=== PATIENT | female | born 1960 | race Caucasian/White ===

== ENCOUNTER → 2019-01-12 | Outpatient (CLI) | payer OTHER ==
--- NOTE | 2019-01-13 08:20 | MM ---
Reason for exam: screening (asymptomatic). Last mammogram was performed 2 years and 4 months ago. History: Patient is postmenopausal. Physical Findings: A clinical breast exam by your physician is recommended on an annual basis and results should be correlated with mammographic findings. MG Screening Mammo w CAD Bilateral CC and MLO view(s) were taken. Prior study comparison: September 28, 2016, bilateral MG screening mammo w CAD. June 10, 2014, bilateral MG screening mammo w CAD. There are scattered fibroglandular densities. No suspicious abnormality. No significant changes when compared with prior studies. ASSESSMENT: Negative, BI-RAD 1 RECOMMENDATION: Routine screening mammogram of both breasts in 1 year.
== END | disposition home or self-care (01) ==
LOC: RADMAMWWP 10:54
PROVIDERS: ATTEND Internal Medicine
DX: Z12.31 Encounter for screening mammogram for malignant neoplasm of breast (principal)
CPT/HCPCS: 77067

== ENCOUNTER → 2022-07-24 | Outpatient (CLI) | payer OTHER ==
--- NOTE | 2022-07-24 09:05 | BD ---
EXAMINATION TYPE: Axial Bone Density DATE OF EXAM: 07/24/2022 COMPARISON: NONE CLINICAL HISTORY: 61 years year old Female. ICD-10 CODE: Z78.[address] Height: 63 Weight: 187 FRAX RISK QUESTIONS: Alcohol (3 or more units per day): NO Family History (Parent hip fracture): NO Glucocorticoids (More than 3mos): NO History of Fracture in Adulthood: NO Secondary Osteoporosis: 1. Type 1 Diabetes: NO 2. Hyperthyroidism: NO 3. Menopause before 45: NO 4. Malnutrition: NO 5. Chronic liver disease: NO Rheumatoid Arthritis: NO Current Tobacco Use: NO RISK FACTORS HISTORY OF: Hip Fracture (Right/Left): NO Spine Fracture: NO History of Wrist Fracture: NO Surgery to Spine/Hip(right/left)/Wrist (right/left): NO Family History of Osteoporosis: NO Active: YES Diet low in dairy products/other sources of calcium: NO Postmenopausal woman: YES Take estrogen and/or progesterone medications: NO Lost more than 2 inches in height since high school: NO Frequent falls: NO Poor Health: NO Hyperparathyroidism: NO Adrenal Insufficiency: NO MEDICATIONS: Prednisone or other steroids: NO Thyroid Medications: NO Osteoporosis Medications: NO Additional Medications: VIT D, EXAM MEASUREMENTS: Bone mineral densitometry was performed using the happyview System. Bone mineral density as measured about the Lumbar spine is: ----- L1-L4(G/cm2): 1.226 T Score Values are as follows: ----- L1: -0.2 ----- L2: -0.3 ----- L3: 0.8 ----- L4: 0.9 ----- L1-L4: 0.4 BASELINE STUDY Bone mineral density about the R hip (g/cm2): 0.775 Bone mineral density about the L hip (g/cm2): 0.853 T Score values are as follows: -----R Neck: -1.9 -----L Neck: -1.3 -----R Total: -1.0 -----L Total: 0.1 BASELINE STUDY FRAX%s: The graph provided illustrates a 8.9% chance for a major osteoporotic fx and a 1.0% chance fo r the hips probability for fx in 10 years time. IMPRESSION: Osteopenia (T Score between -2.5 and -1). There is slightly increased risk of fracture and the patient may be considered for treatment. Re-Screen 2-5 years. NOTE: T-SCORE=SD OF THE YOUNG ADULT MEAN.
--- NOTE | 2022-07-25 19:10 | MM ---
Reason for Exam: Screening (asymptomatic). Last mammogram was performed 3 year(s) and 7 month(s) ago. Patient History: Menarche at age 14. First Full-Term at age 25. Left ovary removed at age 53. Right ovary removed at age 53. Hysterectomy at age 53. Postmenopausal. Risk Values: Marla 5 year model risk: 1.3%. NCI Lifetime model risk: 6.6%. Prior Study Comparison: 06/10/2014 Bilateral Screening Mammogram, [facility]. 09/28/2016 Bilateral Screening Mammogram, [facility]. 01/12/2019 Bilateral Screening Mammogram, [facility]. Tissue Density: There are scattered fibroglandular densities. Findings: Analyzed By CAD. Focal rounded area of increased densities in the upper-outer aspect right breast anterior to mid position, present previously. This has obscured margins. No suspicious groups of microcalcifications, spiculated or lobular masses, architectural distortion or other secondary signs of malignancy are mammographically apparent. Overall Assessment: Benign, BI-RAD 2 Management: Screening Mammogram of both breasts in 1 year. A negative mammogram report should not preclude additional follow up of suspicious palpable abnormalities. Patient should continue monthly self breast exam. A clinical breast exam by your physician is recommended on an annual basis and results should be correlated with mammographic findings. Electronically signed and approved by: Davide Daniels D.O. Radiologis
== END | disposition home or self-care (01) ==
LOC: RADMAMWWP 07:26
PROVIDERS: ATTEND Family Medicine
DX: Z12.31 Encounter for screening mammogram for malignant neoplasm of breast (principal); M85.89 Other specified disorders of bone density and structure, multiple sites; Z78.0 Asymptomatic menopausal state
CPT/HCPCS: 77067; 77080

== ENCOUNTER 2022-08-09 07:21 | Day surgery (SDC) | payer OTHER ==
[2022-08-07 10:43] VITALS: BMI 32.8
[~2022-08-09 07:21] MED LIST: LACTATED RINGERS 1,000 ML IV SCH; LIDOCAINE 1% (10MG/ML) FOR IV START INTRADERMA PRN
[2022-08-09 07:54] VITALS: TEMP 98
[2022-08-09] MEDS ORDERED: PROPOFOL 10 MG/ML 20 ML VIAL IV ONE (08:13)
--- NOTE | 2022-08-09 08:14 | P.GSHP ---
History of Present Illness H&P Date: 08/09/22 Chief Complaint: History of colon polyps Is a 61-year-old female presents today for colonoscopy. Patient appears history of colon polyps. Past Medical History Additional Past Medical History / Comment(s): back pain History of Any Multi-Drug Resistant Organisms: None Reported Past Surgical History: Hysterectomy, Tonsillectomy, Tubal Ligation Additional Past Surgical History / Comment(s): [place] Teeth Past Anesthesia/Blood Transfusion Reactions: No Reported Reaction, Motion Sickness Smoking Status: Never smoker - Past Family History Mother Family Medical History: No Reported History Additional Family Medical History / Comment(s): maternal grandmother-cancer from mole,mother but unk causes Medications and Allergies Home Medications Medication Instructions Recorded Confirmed Type Calcium Carbonate/Vitamin D3 1 each PO DAILY 08/07/22 08/09/22 History [Calcium 600-D3 20 mcg (800 Unit)] Ergocalciferol [Vitamin D2 (1250 1,250 mcg PO WEEKLY 08/07/22 08/09/22 History Mcg = 27700 Iu)] L.acidoph,Paracasei, B.lactis 1 each PO DAILY 08/07/22 08/09/22 History [Probiotic] Multivitamin [Multivitamins Adult 1 tab PO DAILY 08/07/22 08/09/22 History Gummies] Allergies Allergy/AdvReac Type Severity Reaction Status Date / Time adhesive Allergy Rash/Hives Verified 08/09/22 07:49 Surgical - Exam Vital Signs Temp Pulse Resp BP Pulse Ox 98.0 F 89 18 149/83 97 08/09/22 07:52 08/09/22 07:52 08/09/22 07:52 08/09/22 07:52 08/09/22 07:52 - General well developed, well nourished - Eyes PERRL - ENT normal pinna - Neck no masses - Respiratory normal expansion - Cardiovascular Rhythm: regular - Abdomen Abdomen: soft, non tender Assessment and Plan Assessment: History of colon polyps. We'll perform colonoscopy
--- NOTE | 2022-08-09 08:32 | P.OP ---
Date of Procedure: 08/09/22 Preoperative Diagnosis: History of colon polyps Postoperative Diagnosis: Normal colon Procedure(s) Performed: Colonoscopy Anesthesia: MAC Surgeon: Bro Casarez Pathology: none sent Condition: stable Disposition: PACU Description of Procedure: The patient's placed on the endoscopy table in the lateral position. She received IV sedation. The digital rectal exam was performed which revealed no ebonized. The flexible colonoscope was then placed patient anus and passed throughout the entire colon. The ileocecal valve was visualized. The cecum, ascending and transverse colon appeared normal. The descending and sigmoid colon appeared normal. Scope back the rectum and this appeared normal. Scope withdrawn for patient.
[2022-08-09 08:54] VITALS: BP 121/71; PULSE 68; RESP 16
== END 2022-08-09 09:30 | disposition home or self-care (01) ==
LOC: ORWHC2ENDO 07:21
PROVIDERS: ATTEND Surgery
DX: Z86.010 Personal history of colon polyps (principal); Z91.048 Other nonmedicinal substance allergy status; F32.A Depression, unspecified; F41.9 Anxiety disorder, unspecified
CPT/HCPCS: 45378; J2704

== ENCOUNTER → 2023-08-20 | Outpatient (CLI) | payer OTHER ==
--- NOTE | 2023-08-21 08:44 | MM ---
Reason for Exam: Screening (asymptomatic). Last screening mammogram was performed 12 month(s) ago. Patient History: Menarche at age 14. First Full-Term at age 25. Left ovary removed at age 53. Right ovary removed at age 53. Hysterectomy at age 53. Postmenopausal. Risk Values: Marla 5 year model risk: 1.3%. NCI Lifetime model risk: 6.4%. Prior Study Comparison: 09/28/2016 Bilateral Screening Mammogram, [facility]. 01/12/2019 Bilateral Screening Mammogram, [facility]. 07/24/2022 Bilateral MG screening mammo w CAD, [facility]. Tissue Density: There are scattered fibroglandular densities. Findings: Analyzed By CAD. There is no suspicious group of microcalcifications or new suspicious mass. Left breast MLO view middle/posterior depth asymmetry 9.9 cm from the nipple measuring 6 mm. Slice 24 of 89 Right breast: There is no suspicious group of microcalcifications or new suspicious mass. Overall Assessment: Incomplete: need additional imaging evaluation, BI-RAD 0 Management: Diagnostic Mammogram of the left breast. [facility] will attempt to contact patient to return for supplemental views and ultrasound if indicated. Patient should continue monthly self-breast exams. A clinical breast exam by your physician is recommended on an annual basis. This exam should not preclude additional follow-up of suspicious palpable abnormalities. Note on Marla scores and lifetime risk: 1. A Marla score greater than 3% is considered moderate risk. If this is the case, consider specialist referral to assess eligibility for a risk reducing agent. 2. If overall lifetime risk for the development of breast cancer is 20% or higher, the patient may qualify for future screening with alternating mammogram and breast MRI. Electronically signed and approved by: Dimitri Linares DO
== END | disposition home or self-care (01) ==
LOC: RADMAMWWP 07:21
PROVIDERS: ATTEND Family Medicine
DX: Z12.31 Encounter for screening mammogram for malignant neoplasm of breast (principal); Z78.0 Asymptomatic menopausal state
CPT/HCPCS: 77063; 77067

== ENCOUNTER → 2023-08-29 | Outpatient (CLI) | payer OTHER ==
--- NOTE | 2023-08-29 14:13 | MM ---
Reason for Exam: Additional evaluation requested from abnormal screening. Last screening mammogram was performed less than 1 month ago. Patient History: Menarche at age 14. First Full-Term at age 25. Left ovary removed at age 53. Right ovary removed at age 53. Hysterectomy at age 53. Postmenopausal. Risk Values: Marla 5 year model risk: 1.4%. NCI Lifetime model risk: 6.2%. Prior Study Comparison: 06/10/2014 Bilateral Screening Mammogram, [facility]. 09/28/2016 Bilateral Screening Mammogram, [facility]. 01/12/2019 Bilateral Screening Mammogram, [facility]. 07/24/2022 Bilateral MG screening mammo w CAD, [facility]. 08/20/2023 Bilateral MG 3D screening mammo w/cad, [facility]. Tissue Density: Left: There are scattered fibroglandular densities. Findings: Analyzed By CAD. Left breast asymmetry compresses out on spot compression imaging. No new suspicious masses, calcifications or distortions. Overall Assessment: Benign, BI-RAD 2 Management: Screening Mammogram of the left breast in 1 year. Results were given to the patient verbally at the time of exam. Patient should continue monthly self-breast exams. A clinical breast exam by your physician is recommended on an annual basis. This exam should not preclude additional follow-up of suspicious palpable abnormalities. Note on Marla scores and lifetime risk: 1. A Marla score greater than 3% is considered moderate risk. If this is the case, consider specialist referral to assess eligibility for a risk reducing agent. 2. If overall lifetime risk for the development of breast cancer is 20% or higher, the patient may qualify for future screening with alternating mammogram and breast MRI. Electronically signed and approved by: Dimitri Linares DO
== END | disposition home or self-care (01) ==
LOC: RADMAMWWP 13:38
PROVIDERS: ATTEND Family Medicine
DX: R92.322 Mammographic fibroglandular density, left breast (principal); Z78.0 Asymptomatic menopausal state; Z90.721 Acquired absence of ovaries, unilateral
CPT/HCPCS: 77065; G0279; 77061

== ENCOUNTER → 2024-03-03 | Outpatient (CLI) | payer OTHER | END | disposition home or self-care (01) | LOC: LABWHC1 14:48 | PROVIDERS: ATTEND Surgery Plastic and Reconstructive Surgery | DX: I11.9 Hypertensive heart disease without heart failure (principal) | CPT/HCPCS: 36415; 93005 ==

== ENCOUNTER 2024-04-02 10:07 | Observation (INO) | payer OTHER ==
--- NOTE | 2024-04-02 09:45 | P.GSHP ---
History of Present Illness H&P Date: 04/02/24 CHIEF COMPLAINT: Gallstones HISTORY OF PRESENT ILLNESS: The patient is a 63-year-old female who presents with history of epigastric including right upper quadrant abdominal pain. She underwent diagnostic studies for her gallbladder. Separately her clinical picture was consistent with cholecystitis. Now she presents for surgical intervention. PAST MEDICAL HISTORY: Please see list PAST SURGICAL HISTORY: Please see list MEDICATIONS: Please see list ALLERGIES: Please see list SOCIAL HISTORY: Please see list FAMILY HISTORY: Please see list REVIEW OF ORGAN SYSTEMS: CONSTITUTIONAL: No reports of fevers or chills. HEENT: Denies any troubles with the vision or hearing. ENDOCRINE: No reports of hypothyroidism. No diabetes. RESPIRATORY: No recent pneumonias. CARDIOVASCULAR: Denies chest pain or palpitations GI: No blood in stools or constipation. MUSCULOSKELETAL: Has occasional joint pain including back pain. NEURO: No seizure disorders or headaches. No recent stroke. PSYCH: No depression or suicidal ideation. GENITOURINARY: No active blood in urine. No urinary hesitancy. HEMATOLOGIC: No personal or family history of DVTs or pulmonary emboli. SKIN: No skin cancer. PHYSICAL EXAM: VITAL SIGNS: Afebrile vital signs stable GENERAL: Well-developed pleasant in no acute distress. HEENT: No scleral icterus. Extraocular movements grossly intact. Moist buccal mucosa. NECK: Supple without lymphadenopathy. CHEST: Unlabored respirations. Equal bilateral excursions. CARDIOVASCULAR: Regular rate regular rhythm rhythm. Distal 2+ pulses. ABDOMEN: Soft, nondistended. Tender along the epigastrium and right upper quadrant. MUSCULOSKELETAL: No clubbing, cyanosis, or edema. NEURO: Cranial nerves II to XII within normal limits. No focal or lateralizing signs. PSYCH: Alert and oriented to person, place and time. SKIN: Well-perfused good skin turgor. LABS: Reviewed from 2014 and outdated. EKG February 2024 demonstrates normal EKG with sinus bradycardia. ASSESSMENT: 1. Epigastric and right upper quadrant abdominal pain 2. Chronic cholecystitis 3. Symptomatic gallstones. PLAN: 1. Will need a robotic cholecystectomy possible open. Benefits and risks were described. 2. Heparin for DVT prophylaxis 5000 units. 3. Antibiotic prophylaxis. 4. CBC and CMP on day of procedure 5. Non-narcotic pre and post op pain management reviewed. 6. Indocyanine green for biliary imaging. 7. Application of regional block for pain management Past Medical History Additional Past Medical History / Comment(s): current bloating, gas, possible gallbladder attack/abd pain December 2023 History of Any Multi-Drug Resistant Organisms: None Reported Past Surgical History: Hysterectomy, Tonsillectomy, Tubal Ligation Additional Past Surgical History / Comment(s): [place] Teeth Past Anesthesia/Blood Transfusion Reactions: Motion Sickness, Postoperative Nausea & Vomiting (PONV) Additional Past Anesthesia/Blood Transfusion Reaction / Comment(s): PONV after [place] teeth removal. Smoking Status: Never smoker - Past Family History Mother Family Medical History: No Reported History Additional Family Medical History / Comment(s): maternal grandmother-cancer from mole,mother but unk causes Medications and Allergies Home Medications Medication Instructions Recorded Confirmed Type Ergocalciferol [Vitamin D2 (1250 1,250 mcg PO WEEKLY 08/07/22 03/31/24 History Mcg = 70651 Iu)] Magnesium 1 dose PO HS 03/31/24 03/31/24 History Zinc 1 dose PO DAILY 03/31/24 03/31/24 History Allergies Allergy/AdvReac Type Severity Reaction Status Date / Time adhesive Allergy Rash/Hives Verified 03/31/24 08:35
--- NOTE | 2024-04-02 09:54 | P.PCN ---
Date of Procedure: 04/02/24 Description of Procedure: PREOPERATIVE DIAGNOSIS: GI bleed POSTOPERATIVE DIAGNOSIS: Acute gastric ulcer with bleeding Acute gastritis Gastroesophageal reflux disease Duodenitis OPERATION: Esophagogastroduodenoscopy with cold forcep biopsies esophagus, antrum, duodenum SURGEON: Renee Braga MD ANESTHESIA: MAC. INDICATIONS: The patient is a 63-year-old female who presents with gastrointestinal bleeding. Benefits and risks of the procedure were described. Informed consent was obtained. DESCRIPTION: The patient was brought into the endoscopy suite and laid in the left lateral decubitus position. An Olympus gastroscope was passed along the posterior oropharynx down to the distal esophagus where the squamocolumnar junction was encountered at 35 cm from the incisors. The stomach was entered and no bile reflux was found. Additional findings are listed below. The first through third portion of the duodenum was examined and unremarkable. Retroflexion of the scope confirmed Hill grade 2 lower esophageal valve. The squamocolumnar junction demonstrated LA grade B erosive esophagitis. The stomach was desufflated. The patient tolerated the procedure well. FINDINGS: Squamocolumnar junction 35 cm from the incisors. Diaphragmatic hiatus at 35 cm. Acute gastric 3 mm ulcer with bleeding along antrum, biopsies obtained Hill grade 2 lower esophageal valve. LA grade B erosive esophagitis. Biopsies obtained Active duodenitis with biopsies obtained RECOMMENDATIONS: 1. Omeprazole 40 mg daily
[~2024-04-02 10:07] MED LIST changes: +HYDROmorphone 0.5 MG/0.5 ML SYRINGE IVP PRN; -LACTATED RINGERS 1,000 ML IV SCH; -LIDOCAINE 1% (10MG/ML) FOR IV START INTRADERMA PRN; +ONDANSETRON 4 MG/2 ML VIAL IVP PRN
[2024-04-02] MEDS: LACTATED RINGERS 1,000 ML IV SCH (10:45)
[2024-04-02] MEDS: IV FLUID CONTINUATION 1,000 ML IV ONE ×2 (10:48→12:27)
[2024-04-02] MEDS: ACETAMINOPHEN TAB 500 MG TAB PO PRN (10:53)
[2024-04-02] MEDS: ONDANSETRON 4 MG/2 ML VIAL IVP ONE (10:53)
[2024-04-02] MEDS: HEPARIN SODIUM,PORCINE 5,000 UNIT/ML 1 ML VIAL SQ PRN (10:55)
[2024-04-02] MEDS: DEXAMETHASONE SOD PHOSPHATE 4 MG/ML 1 ML VIAL IV ONE (10:55)
[2024-04-02 11:00] LABS: Basophils % (A) 1 %; Eosinophils # (A) 0.1 k/uL (0-0.7); Eosinophils % (A) 2 %; HCT 50.3 % (34.0-46.0); HGB 16.1 gm/dL (11.4-16.0); Lymphocytes # (A) 1.8 k/uL (1.0-4.8); Lymphocytes % (A) 36 %; MCH 29.2 pg (25.0-35.0); MCV 91.3 fL (80.0-100.0); Mean Platelet Volume 8.7; Monocytes # (A) 0.4 k/uL (0-1.0); Monocytes % (A) 7 %; Neutrophils # (A) 2.5 k/uL (1.3-7.7); Neutrophils % (A) 52 %; Platelet Count 150 k/uL (150-450); RBC 5.51 m/uL (3.80-5.40); RDW 13.5 % (11.5-15.5); WBC 4.9 k/uL (3.8-10.6)
[2024-04-02] MEDS ORDERED: SUCCINYLCHOLINE CHLORIDE 200 MG/10 ML VIAL IV ONE (11:00)
[2024-04-02] MEDS ORDERED: HYDROmorphone (PF) 1 MG/ML ONE (11:00)
[2024-04-02] MEDS ORDERED: PROPOFOL 10 MG/ML 20 ML VIAL IV ONE (11:00)
[2024-04-02] MEDS ORDERED: ePHEDrine 50 MG/ML 1 ML VIAL ONE (11:00)
[2024-04-02] MEDS ORDERED: ONDANSETRON 4 MG/2 ML VIAL ONE (11:00)
[2024-04-02] MEDS ORDERED: MIDAZOLAM 2 MG/2 ML VIAL ONE (11:00)
[2024-04-02] MEDS ORDERED: NEOSTIGMINE 1 MG/ML 10 ML VIAL ONE (11:00)
[2024-04-02] MEDS ORDERED: KETOROLAC 15 MG/ML 1 ML VIAL ONE (11:00)
[2024-04-02] MEDS ORDERED: WATER FOR INJECTION, STERILE 10 ML VIAL IV ONE (11:00)
[2024-04-02] MEDS ORDERED: LIDOCAINE 1% INJ 10MG/ML (20 ML MDV) ONE (11:00)
[2024-04-02] MEDS ORDERED: GLYCOPYRROLATE 0.2 MG/ML 2 ML VIAL ONE (11:00)
[2024-04-02] MEDS ORDERED: fentaNYL (PF) 50 MCG/ML 2 ML AMP ONE (11:00)
[2024-04-02] MEDS ORDERED: ROCURONIUM 10 MG/ML (5 ML VIAL) IV ONE (11:00)
[2024-04-02] MEDS ORDERED: PHENYLEPHRINE 10 MG/ML VIAL ONE (11:00)
[2024-04-02 11:17] LABS: ALT 16 U/L (4-34); AST 22 U/L (14-36); African American GFR (CKD) >90 (>60 ml/min/1.73 sqM); Albumin 4.6 g/dL (3.5-5.0); Alkaline Phosphatase 90 U/L (38-126); Anion Gap 7 mmol/L; Blood Urea Nitrogen 20 mg/dL (7-17); Calcium 9.4 mg/dL (8.4-10.2); Carbon Dioxide 26 mmol/L (22-30); Chloride 109 mmol/L (98-107); Glucose 94 mg/dL (74-99); Non-African American GFR(CKD) 81 (>60 ml/min/1.73 sqM); Sodium 142 mmol/L (137-145); Total Bilirubin 0.8 mg/dL (0.2-1.3); Total Protein 7.5 g/dL (6.3-8.2)
[2024-04-02] MEDS: LIDOCAINE 1%-EPI 1:100,000 20 ML VIAL SQ ONE (11:37)
[2024-04-02] MEDS: droPERidol 5 MG/2 ML VIAL IVP ONE (13:41)
[2024-04-02] MEDS ORDERED: NALOXONE 0.4 MG/ML 1 ML VIAL IV PRN (13:50)
--- NOTE | 2024-04-02 13:57 | P.OP ---
Date of Procedure: 04/02/24 Description of Procedure: SURGEON: ABDON AGOSTO MD PREOPERATIVE DIAGNOSES: 1. Symptomatic gallstones 2. Upper abdominal pain 3. Obesity due to excess calories, BMI 33.7 POSTOPERATIVE DIAGNOSES: 1. Acute purulent hydropic cholecystitis with cystic duct obstruction due to gallstones 2. Upper abdominal pain 3. Obesity due to excess calories, BMI 33.7 4. Right upper quadrant pericholecystic peritoneal adhesions OPERATION: 1. Robotic-assisted da Janene Xi laparoscopic lysis of adhesions over 1 hour 2. Robotic-assisted da Janene Xi laparoscopic cholecystectomy, multiport with FIREFLY ESTIMATED BLOOD LOSS: 10 mL. SPECIMENS REMOVED: Gallbladder with a aerobic anaerobic cultures COMPLICATIONS: None. OPERATIVE FINDINGS: 1. Acute purulent gangrenous cholecystitis with hydrops and distended gallbladder 2. Indocyanine green confirms acute cholecystitis with lack of contrast in gallbladder 3. Common bile duct within normal limits, without dilation 4. Moderate to severe adhesions right upper quadrant requiring extensive lysis of adhesions INDICATIONS: The patient is a 63 year-old female who presents with epigastric right upper quadrant pain, symptomatic gallstones. Surgical intervention with cholecystectomy was described. Robotic assisted laparoscopic approach was described. Benefits and risks of the procedure including but not limited to bleeding, infection, injury to the biliary tree was reviewed. Informed consent was obtained. DESCRIPTION OF PROCEDURE: Patient was brought to the operating room, placed in supine position. After general induction, the abdomen had been prepped and draped in standard sterile fashion. The robotic da Janene XI system was primed. After a timeout protocol was performed, the patient had been prepped and draped in standard sterile fashion. The patient was injected with indocyanine green. A 5 mm 0 degrees laparoscopic trocar entry was performed along the left upper quadrant. The abdomen insufflated to 15 mmHg pressure which was tolerated well. Diagnostic laparoscopy demonstrated no injury to bowel viscera or mesentery. The liver surface was unremarkable. A moderately distended gallbladder was identified adding complexity to the case. Next, two 8 mm robotic ports were placed along the right upper abdomen. The camera 8-mm port was maintained along the epigastrium. Another 8 mm port was placed along the left upper abdominal wall after exchanging the 5 mm port. Please note that the ports were placed at least 10 to 15 cm away from the target anatomy of the gallbladder. The robot was docked along the left lateral abdomen. The patient was repositioned in reverse Trendelenburg position at 25 with the right side up 7. Using a grasper for arm 3, a grasper for arm 4, including hook cautery for arm 1, the robotic system was docked and primed as described. Instruments were interchanged by the information assistant including hook cautery, Bovie cautery and clip appliers. Additional instruments including vessel sealer, robotic suction molder punch, robotic stapler were made available. I had sat at the console. The gallbladder was adherent to surrounding tissue including omentum adding complexity to the case and requiring extensive lysis of adhesions using blunt and sharp dissection using vessel sealer including hook artery for over one hour. The gallbladder was reflected towards the dome of the liver. The gallbladder was moderately distended adding complexity to the case. Edema was found along the cystic triangle including infundibulum. Initial dissection was performed on the gallbladder infundibulum using indocyanine green to illuminate the cystic duct and common bile duct. Due to moderate distention of the infundibulum, dome down technique was performed removing the gallbladder from the hepatic fossa starting from the fundus towards the infundibulum. Using a sponge, the liver was reflected towards the diaphragm and starting at the gallbladder fundus, hook cautery was used between the liver and the gallbladder. Next, indocyanine green was used to confirm the common bile duct as well as cystic duct. The entire gallbladder was without contrast consistent with acute cholecystitis. Decompression of the gallbladder demonstrated acute purulence from bile where aerobic anaerobic cultures were obtained. The infundibulum was retracted laterally away from the common bile duct. The left upper quadrant trocar was exchanged for a 12 mm robotic trocar by the information assistant. FIREFLY was used to identify the common bile duct. Robotic 45 mm blue staple loads were fired across the infundibulum as the cystic duct and cystic structures were moderately edematous. Additionally, gallstone was impacted along the neck of the gallbladder. The abdomen was irrigated with normal saline solution of 1 L. Indocyanine green was used to confirm no bile leak from the staple line. Sponges were removed from the abdomen. The robot was undocked. I re-scrubbed into the case. A 10 mm Endo Catch bag was used to remove the gallbladder in total via the left upper quadrant incision after widening the incision. The specimen was removed from the abdominal cavity. Karan William and 0 Vicryl was used to close the fascial defect of the left upper quadrant. All pneumoperitoneum instruments were evacuated from the abdominal cavity. The incisions were cleansed using dilute hydrogen peroxide. The incisions were reapproximated using 4-0 Monocryl in an interrupted subcuticular fashion. Please note along the trocar sites, local anesthetic was placed as a field block prior to insertion of all instruments. Liquid glue was applied to the skin. Optifoam was placed along the left upper quadrant incision. At the end of the procedure needle, sponge, and instrument count had been verified correct by the rail technician. The patient was transferred to postanesthesia care unit in stable condition. Intraoperative films were shared with the patient's family who were pleased with the level of care. Inpatient hospitalization advised due to acute cholecystitis with purulence gallbladder fluid and hydrops requiring IV antibiotics.
[2024-04-02] MEDS: METOCLOPRAMIDE 5 MG/ML 2 ML VIAL IVP STA (14:36)
[2024-04-02] MEDS: SCOPOLAMINE 1 MG/72 HR PATCH TRANSDERM STA (14:38)
[2024-04-02] MEDS: INDOCYANINE GREEN 25 MG VIAL IV STA (15:24)
[2024-04-02] MEDS: PIPERACILLIN-TAZOBACTAM 3.375 GM in SODIUM CHLORIDE 0.9% 100 ML IVPB SCH (16:01)
[2024-04-02] MEDS: HEPARIN SODIUM,PORCINE 5,000 UNIT/ML 1 ML VIAL SQ SCH (21:16)
[2024-04-02] MEDS: KETOROLAC 15 MG/ML 1 ML VIAL IVP SCH (21:16)
[2024-04-02] MEDS: SODIUM CHLORIDE 0.9% 2,000 ML IV ONE (21:16)
[2024-04-02] MEDS: METOCLOPRAMIDE 5 MG/ML 2 ML VIAL IVP SCH (21:17)
[2024-04-02] MEDS: ONDANSETRON 4 MG/2 ML VIAL IVP SCH (21:17)
[2024-04-02] MEDS: HYDROmorphone 1 MG/ML 1 ML SYRINGE IVP PRN (21:18)
[2024-04-03 08:15] LABS: ALT 47 U/L (4-34); AST 67 U/L (14-36); African American GFR (CKD) >90 (>60 ml/min/1.73 sqM); Albumin 3.4 g/dL (3.5-5.0); Albumin/Globulin Ratio 1.3; Alkaline Phosphatase 68 U/L (38-126); Anion Gap 4 mmol/L; Blood Urea Nitrogen 13 mg/dL (7-17); Calcium 8.4 mg/dL (8.4-10.2); Carbon Dioxide 25 mmol/L (22-30); Chloride 111 mmol/L (98-107); Globulin 2.6 g/dL; Glucose 77 mg/dL (74-99); Non-African American GFR(CKD) >90 (>60 ml/min/1.73 sqM); Potassium 4.2 mmol/L (3.5-5.1); Sodium 140 mmol/L (137-145); Total Bilirubin 0.6 mg/dL (0.2-1.3)
[2024-04-03 08:21] LABS: Basophils % (A) 0 %; Eosinophils % (A) 0 %; HCT 41.5 % (34.0-46.0); HGB 13.4 gm/dL (11.4-16.0); Lymphocytes # (A) 1.2 k/uL (1.0-4.8); Lymphocytes % (A) 17 %; MCH 29.7 pg (25.0-35.0); MCHC 32.4 g/dL (31.0-37.0); MCV 91.8 fL (80.0-100.0); Mean Platelet Volume 11.2; Monocytes # (A) 0.5 k/uL (0-1.0); Monocytes % (A) 7 %; Neutrophils # (A) 5.4 k/uL (1.3-7.7); Neutrophils % (A) 74 %; Platelet Count 112 k/uL (150-450); RBC 4.52 m/uL (3.80-5.40); RDW 13.6 % (11.5-15.5); WBC 7.2 k/uL (3.8-10.6)
--- NOTE | 2024-04-03 09:57 | P.PN ---
Subjective Progress Note Date: 04/03/24 CHIEF COMPLAINT: Cholecystitis HISTORY OF PRESENT ILLNESS: Patient is postop day #1 status post lysis of adhesions and laparoscopic cholecystectomy. Patient had evidence of a purulent hydropic cholecystitis. She is remaining in the hospital for IV antibiotics. Patient does report abdominal pain mostly with movement. She denies any flatus. She did have nausea earlier that is improving with antiemetics. No vomiting. She is urinating without difficulty. Afebrile. WBC 7.2 Hgb 13.4 platelets 112 sodium is 140 potassium 4.2 creatinine 0.67 total bili 0.6 AST 67 ALT 47 alk phos 68 PHYSICAL EXAM: VITAL SIGNS: Reviewed GENERAL: Well-developed in no acute distress. HEENT: No sclera icterus. Extraocular movements grossly intact. Moist buccal mucosa. Head is atraumatic, normocephalic. Hears conversational speech. No nasal drainage. NECK: Supple without lymphadenopathy. CHEST: Non-labored respirations and equal bilateral excursions. CARDIOVASCULAR: Palpable 2+ radial pulses. ABDOMEN: Soft. Nondistended. Incision sites clean dry and intact MUSCULOSKELETAL: No clubbing or cyanosis. NEUROLOGIC: No focal or lateralizing signs. Cranial nerves II through XII grossly intact. PSYCH: Appropriate affect. Alert and oriented to person, place and time. SKIN: Well perfused. Good skin turgor. ASSESSMENT: 1. Acute purulent hydropic cholecystitis with cystic duct obstruction due to gallstones 2. Upper abdominal pain 3. Obesity due to excess calories, BMI 33.7 4. Right upper quadrant pericholecystic peritoneal adhesions PLAN: -Continue IV antibiotics -Continue pain management -Continue low-fat diet -Abdominal binder ordered -Continue antiemetics -Encourage patient to ambulate -Encourage patient to use incentive spirometer -Continue DVT prophylaxis subcu heparin Physician Education Reviewer note has been reviewed by physician. Signing provider agrees with the documented findings, assessment, and plan of care. Please see additional documentation below CHIEF COMPLAINT: Acute purulent hydropic cholecystitis HISTORY OF PRESENT ILLNESS: The patient is a 63-year-old female status post cholecystectomy for acute purulent hydropic cholecystitis. Today she is hypotensive. Her nausea has improved. Patient does not take antihypertensive medications. ROS: No reports of nausea and vomiting. No fevers or chills. No new chest pain. No productive sputum PHYSICAL EXAM: VITAL SIGNS: Reviewed CONSTITUTIONAL: Well developed and in no acute distress. EYES: Conjuctivae without sclera icterus. Extraocular movements grossly intact. HEAD, EARS, NOSE, THROAT: Moist buccal mucosa. Head is atraumatic, normocephalic. Hears conversational speech. No nasal drainage. RESPIRATORY: Non-labored respirations and equal bilateral excursions. CARDIOVASCULAR: Palpable 2+ radial pulses. ABDOMEN: Incisions clean dry and intact. MUSCULOSKELETAL: No gross deformity of the lower extremities noted. No clubbing. No cyanosis. SKIN: Good skin turgor. Well perfused. NEUROLOGIC: Cranial nerves II through XII grossly intact. No focal or lateralizing signs. PSYCH: Appropriate affect. Alert and oriented to person, place and time. CLINICAL LABS: Reviewed. LFTs elevated. WBC normal. ASSESSMENT: 1. Acute purulent hydropic cholecystitis due to gallstones 2. Hypotension PLAN: 1. Patient is hypotensive. Normal saline 2 L ordered 2. Continue IV antibiotics 3. Await cultures and aerobic anaerobic for responsible organism 4. Inpatient admission due to acute purulent hydropic cholecystitis with IV antibiotics Objective - Vital Signs Vital signs: Vital Signs Temp 98.2 F 04/03/24 06:56 Pulse 56 L 04/03/24 06:56 Resp 17 04/03/24 06:56 BP 95/53 04/03/24 06:56 Pulse Ox 98 04/03/24 06:56 FiO2 Intake & Output 04/02/24 04/03/24 04/03/24 18:59 06:59 18:59 Intake Total 1450 Output Total 520 350 Balance 930 -350 Weight 87.7 kg Intake: IV 1450 Output: Urine 500 350 Estimated Blood Loss 20 Other: Voiding Method Toilet # Voids 2 - Labs CBC & Chem 7: 04/03/24 06:13 04/03/24 06:13 Labs: Abnormal Lab Results - Last 24 Hours (Table) 04/02/24 04/02/24 04/03/24 Range/Units 10:45 10:45 06:13 RBC 5.51 H (3.80-5.40) m/uL Hgb 16.1 H (11.4-16.0) gm/dL Hct 50.3 H (34.0-46.0) % Plt Count 112 L (150-450) k/uL Chloride 109 H (98-107) mmol/L BUN 20 H (7-17) mg/dL AST (14-36) U/L ALT (4-34) U/L Total Protein (6.3-8.2) g/dL Albumin (3.5-5.0) g/dL 04/03/24 Range/Units 06:13 RBC (3.80-5.40) m/uL Hgb (11.4-16.0) gm/dL Hct (34.0-46.0) % Plt Count (150-450) k/uL Chloride 111 H (98-107) mmol/L BUN (7-17) mg/dL AST 67 H (14-36) U/L ALT 47 H (4-34) U/L Total Protein 6.0 L (6.3-8.2) g/dL Albumin 3.4 L (3.5-5.0) g/dL
[2024-04-03] MEDS: SODIUM CHLORIDE 0.9% 2,000 ML IV ONE (18:22)
--- NOTE | 2024-04-04 07:17 | P.PN ---
Progress Note - Text Progress Note Date: 04/04/24 CHIEF COMPLAINT: Cholecystitis HISTORY OF PRESENT ILLNESS: Patient is postop day #2 status post lysis of adhesions and laparoscopic cholecystectomy. Patient had evidence of a purulent hydropic cholecystitis. She is remaining in the hospital for IV antibiotics. Patient does report abdominal pain mostly with movement. She denies any flatus. She states she is feeling a little worse today PHYSICAL EXAM: VITAL SIGNS: Reviewed GENERAL: Well-developed in no acute distress. HEENT: No sclera icterus. Extraocular movements grossly intact. Moist buccal mucosa. Head is atraumatic, normocephalic. Hears conversational speech. No nasal drainage. NECK: Supple without lymphadenopathy. CHEST: Non-labored respirations and equal bilateral excursions. CARDIOVASCULAR: Palpable 2+ radial pulses. ABDOMEN: Soft. Nondistended. Incision sites clean dry and intact MUSCULOSKELETAL: No clubbing or cyanosis. NEUROLOGIC: No focal or lateralizing signs. Cranial nerves II through XII grossly intact. PSYCH: Appropriate affect. Alert and oriented to person, place and time. SKIN: Well perfused. Good skin turgor. ASSESSMENT: 1. Acute purulent hydropic cholecystitis with cystic duct obstruction due to gallstones 2. Upper abdominal pain 3. Obesity due to excess calories, BMI 33.7 4. Right upper quadrant pericholecystic peritoneal adhesions PLAN: -Continue IV antibiotics -Continue pain management -Continue low-fat diet -Abdominal binder ordered -Continue antiemetics -Encourage patient to ambulate -Encourage patient to use incentive spirometer -Continue DVT prophylaxis subcu heparin
[2024-04-04 10:38] LABS: ALT 40 U/L (8-44); AST 36 U/L (13-35); Albumin 3.5 g/dL (3.8-4.9); Albumin/Globulin Ratio 1.84 Ratio (1.60-3.17); Alkaline Phosphatase 61 U/L (41-126); BUN/Creat Ratio 12.78 Ratio (12.00-20.00); Blood Urea Nitrogen 11.5 mg/dL (9.0-27.0); Calcium 8.1 mg/dL (8.7-10.3); Carbon Dioxide 22.4 mmol/L (21.6-31.8); Chloride 114 mmol/L (96-109); Globulin 1.9 g/dL (1.6-3.3); Glucose 95 mg/dL (70-110); Potassium 4.1 mmol/L (3.5-5.5); Sodium 145 mmol/L (135-145); Total Bilirubin 0.4 mg/dL (0.3-1.2); Total Protein 5.4 g/dL (6.2-8.2)
[2024-04-05] MEDS: PIPERACILLIN-TAZOBACTAM 3.375 GM in SODIUM CHLORIDE 0.9% 100 ML IVPB SCH (06:19)
[2024-04-05 09:04] LABS: Anion Gap 4 mmol/L; Blood Urea Nitrogen 12 mg/dL (7-17); Carbon Dioxide 28 mmol/L (22-30); Chloride 109 mmol/L (98-107); Glucose 130 mg/dL (74-99); Potassium 3.8 mmol/L (3.5-5.1); Sodium 141 mmol/L (137-145)
[2024-04-05 09:05] LABS: ALT 36 U/L (4-34); AST 30 U/L (14-36); African American GFR (CKD) 85 (>60 ml/min/1.73 sqM); Albumin 3.5 g/dL (3.5-5.0); Albumin/Globulin Ratio 1.4; Alkaline Phosphatase 64 U/L (38-126); Calcium 8.5 mg/dL (8.4-10.2); Globulin 2.5 g/dL; Lipase 44 U/L (23-300); Non-African American GFR(CKD) 74 (>60 ml/min/1.73 sqM); Total Bilirubin 0.6 mg/dL (0.2-1.3)
[2024-04-05 09:07] LABS: Basophils % (A) 0 %; Eosinophils # (A) 0.1 k/uL (0-0.7); Eosinophils % (A) 2 %; HCT 40.2 % (34.0-46.0); HGB 12.7 gm/dL (11.4-16.0); Lymphocytes # (A) 1.2 k/uL (1.0-4.8); Lymphocytes % (A) 23 %; MCH 29.7 pg (25.0-35.0); MCHC 31.6 g/dL (31.0-37.0); MCV 94.1 fL (80.0-100.0); Mean Platelet Volume 9.7; Monocytes # (A) 0.3 k/uL (0-1.0); Monocytes % (A) 6 %; Neutrophils # (A) 3.4 k/uL (1.3-7.7); Neutrophils % (A) 68 %; Platelet Count 107 k/uL (150-450); RBC 4.27 m/uL (3.80-5.40); RDW 13.5 % (11.5-15.5)
--- NOTE | 2024-04-05 12:53 | P.PN ---
Subjective Progress Note Date: 04/05/24 CHIEF COMPLAINT: Acute purulent hydropic cholecystitis HISTORY OF PRESENT ILLNESS: The patient is a 63-year-old female status post cholecystectomy for acute purulent hydropic cholecystitis. She is no longer hypotensive. She reports sneezing and had felt a searing pain of the left upper quadrant incision which is to be expected. She is sitting up in chair. She is tolerating diet. ROS: No reports of nausea and vomiting. No fevers or chills. No new chest pain. No productive sputum PHYSICAL EXAM: VITAL SIGNS: Reviewed CONSTITUTIONAL: Well developed and in no acute distress. EYES: Conjuctivae without sclera icterus. Extraocular movements grossly intact. HEAD, EARS, NOSE, THROAT: Moist buccal mucosa. Head is atraumatic, normocephalic. Hears conversational speech. No nasal drainage. RESPIRATORY: Non-labored respirations and equal bilateral excursions. CARDIOVASCULAR: Palpable 2+ radial pulses. ABDOMEN: Incisions clean dry and intact. Dressing discontinued. No infection. Abdominal binder present. MUSCULOSKELETAL: No gross deformity of the lower extremities noted. No clubb ing. No cyanosis. SKIN: Good skin turgor. Well perfused. NEUROLOGIC: Cranial nerves II through XII grossly intact. No focal or lateralizing signs. PSYCH: Appropriate affect. Alert and oriented to person, place and time. CLINICAL LABS: Reviewed. WBC normal. LFTs trended down towards normal. MICROBIOLOGY: No growth to date. ASSESSMENT: 1. Acute purulent hydropic cholecystitis due to gallstones 2. Hypotension PLAN: 1. Stable for discharge. 2. Discharge medications with ibuprofen, Gas-X, Tylenol described which can also be obtained from the local grocery store. 3. Anticipated time off work at least 4 weeks due to extensive surgery and recovery. 4. I ordered labs that demonstrated overall improvement since admission. Objective - Vital Signs Vital signs: Vital Signs Temp 98.1 F 04/05/24 07:13 Pulse 51 L 04/05/24 07:13 Resp 16 04/05/24 07:13 BP 127/68 04/05/24 07:13 Pulse Ox 98 04/05/24 07:13 FiO2 Intake & Output 04/04/24 04/05/24 04/05/24 18:59 06:59 18:59 Intake Total 600 Balance 600 Intake: Oral 600 Other: Voiding Method Toilet Toilet # Voids 1 - Labs CBC & Chem 7: 04/05/24 08:31 04/05/24 08:31 Labs: Abnormal Lab Results - Last 24 Hours (Table) 04/05/24 04/05/24 Range/Units 08:31 08:31 Plt Count 107 L (150-450) k/uL Chloride 109 H (98-107) mmol/L Glucose 130 H (74-99) mg/dL ALT 36 H (4-34) U/L Total Protein 6.0 L (6.3-8.2) g/dL Microbiology - Last 24 Hours (Table) 04/02/24 13:05 Gram Stain - Final Other - Other Wound Culture - Final
[2024-04-05 14:06] VITALS: BP 144/63; PULSE 50; RESP 17; TEMP 98.8
== END 2024-04-05 17:10 | disposition home or self-care (01) ==
LOC: OR 10:07 → 4SSUR 10:08 → OR 10:08 → 4SSUR 13:16
PROVIDERS: ADMIT Surgery Plastic and Reconstructive Surgery; ATTEND Surgery Plastic and Reconstructive Surgery
DX: K80.12 Calculus of gallbladder with acute and chronic cholecystitis without obstruction (principal); E66.9 Obesity, unspecified; Z68.33 Body mass index [BMI] 33.0-33.9, adult; K29.80 Duodenitis without bleeding; K25.0 Acute gastric ulcer with hemorrhage; K21.9 Gastro-esophageal reflux disease without esophagitis
CPT/HCPCS: 43239; 47562; S2900; 80053; 83690; 85025; 87070; 87075; 87205; 88304; 96372; 96374

== ENCOUNTER → 2024-11-13 | Outpatient (CLI) | payer OTHER ==
--- NOTE | 2024-11-13 18:19 | MM ---
Reason for Exam: Screening (asymptomatic). Last mammogram was performed 1 year(s) and 3 month(s) ago. Patient History: Menarche at age 14. First Full-Term at age 25. Left ovary removed at age 53. Right ovary removed at age 53. Hysterectomy at age 53. Postmenopausal. Risk Values: Marla 5 year model risk: 1.4%. NCI Lifetime model risk: 6.0%. Prior Study Comparison: 07/24/2022 Bilateral MG screening mammo w CAD, [facility]. 08/20/2023 Bilateral MG 3D screening mammo w/cad, [facility]. 08/29/2023 Left MG 3D work up w/cad , [facility]. Tissue Density: There are scattered areas of fibroglandular density. Findings: Analyzed By CAD. Chronic nodularity right breast. Unchanged focal asymmetry upper outer quadrant anterior right breast. There is no suspicious group of microcalcifications or new suspicious mass in either breast. Overall Assessment: Benign, BI-RAD 2 Management: Screening Mammogram of both breasts in 1 year. Further clinical management of lateral left breast tenderness. Patient should continue monthly self-breast exams. A clinical breast exam by your physician is recommended on an annual basis. This exam should not preclude additional follow-up of suspicious palpable abnormalities. Note on Marla scores and lifetime risk: 1. A Marla score greater than 3% is considered moderate risk. If this is the case, consider specialist referral to assess eligibility for a risk reducing agent. 2. If overall lifetime risk for the development of breast cancer is 20% or higher, the patient may qualify for future screening with alternating mammogram and breast MRI. [facility], , 11/13/2024 6:15 PM. Electronically signed and approved by: Brad Diallo M.D. Radiologist
--- NOTE | 2024-11-13 18:28 | BD ---
EXAMINATION TYPE: Axial Bone Density DATE OF EXAM: 11/13/2024 CLINICAL HISTORY: 64 years old Female. ICD-10 CODE: Z78.0 ASYMPTOMATIC NICOLE , Additional History: Height: 62.25 Weight: 190.5 FRAX RISK QUESTIONS: Alcohol (3 or more units per day): no Family History (Parent hip fracture): no Glucocorticoids (More than 3mos): no (Ex: prednisone, prednisolone, methylprednisolone, dexamethasone, and hydrocortisone). History of Fracture in Adulthood: no Secondary Osteoporosis: 1. Type 1 Diabetes: no 2. Hyperthyroidism: no 3. Menopause before 45: no 4. Malnutrition: no 5. Chronic liver disease: no Rheumatoid Arthritis: no Current Tobacco Use: no RISK FACTORS HISTORY OF: Hip Fracture (Right/Left): no Spine Fracture: no History of Wrist Fracture: no Surgery to Spine/Hip(right/left)/Wrist (right/left): no MEDICATIONS: Thyroid Medications: no Osteoporosis Medications: no EXAM MEASUREMENTS: Bone mineral densitometry was performed using the [employer] System. Bone mineral density as measured about the Lumbar spine is: ----- L1-L4(G/cm2): 1.194 T Score Values are as follows: ----- L1: -0.5 ----- L2: -1.1 ----- L3: 0.7 ----- L4: 0.9 ----- L1-L4: 0.1 Z Score Values are as follows: ----- L1: 0.2 ----- L2: -0.3 ----- L3: 1.4 ----- L4: 1.6 ----- L1-L4: 0.8 Bone mineral density has: decreased -2.6% since the study of 07/24/2022 Bone mineral density about the R hip (g/cm2): 0.906 Bone mineral density about the L hip (g/cm2): 0.988 T Score values are as follows: -----R Neck: -1.7 -----L Neck: -1.4 -----R Total: -0.8 -----L Total: -0.2 Z Score values are as follows: -----R Neck: -0.8 -----L Neck: -0.4 -----R Total: -0.2 -----L Total: 0.4 Bone mineral density has: decreased -0.4% since the study of 07/24/2022 FRAX%s: The graph provided illustrates a 8.6% chance for a major osteoporotic fx and a 0.9% chance fo r the hips probability for fx in 10 years time. IMPRESSION: Osteopenia (T Score between -2.5 and -1). There is slightly increased risk of fracture and the patient may be considered for treatment. Re-Screen 2-5 years. NOTE: T-SCORE=SD OF THE YOUNG ADULT MEAN. [facility], , 11/13/2024 6:26 PM
== END | disposition home or self-care (01) ==
LOC: RADBDWWP 14:59
PROVIDERS: ATTEND Family Medicine
DX: Z12.31 Encounter for screening mammogram for malignant neoplasm of breast (principal); R92.323 Mammographic fibroglandular density, bilateral breasts; M85.89 Other specified disorders of bone density and structure, multiple sites; Z78.0 Asymptomatic menopausal state; Z90.722 Acquired absence of ovaries, bilateral
CPT/HCPCS: 77067; 77080